=== PATIENT | female | born 1960 | race Caucasian/White ===

== ENCOUNTER → 2017-01-09 | Outpatient (CLI) | payer OTHER ==
[2017-01-09 08:22] LABS: Cholesterol 207 mg/dL (<200); Creatine Kinase 56 U/L (30-135); Glucose 112 mg/dL (74-99); HDL Cholesterol 73 mg/dL (40-60)
== END | disposition home or self-care (01) ==
LOC: LABWHC1 07:50
PROVIDERS: ATTEND Family Medicine
DX: E78.2 Mixed hyperlipidemia (principal); E55.9 Vitamin D deficiency, unspecified
CPT/HCPCS: 36415; 80061; 82306; 82550; 82947

== ENCOUNTER → 2017-11-19 | Outpatient (CLI) | payer OTHER ==
[2017-11-19 11:47] LABS: Basophils % (A) 1 %; Eosinophils # (A) 0.2 k/uL (0-0.7); Eosinophils % (A) 2 %; HCT 45.1 % (34.0-46.0); HGB 14.8 gm/dL (11.4-16.0); Lymphocytes # (A) 2.4 k/uL (1.0-4.8); Lymphocytes % (A) 30 %; MCH 28.9 pg (25.0-35.0); MCHC 32.9 g/dL (31.0-37.0); MCV 87.7 fL (80.0-100.0); Monocytes # (A) 0.5 k/uL (0-1.0); Monocytes % (A) 7 %; Neutrophils # (A) 4.8 k/uL (1.3-7.7); Neutrophils % (A) 59 %; Platelet Count 290 k/uL (150-450); RBC 5.14 m/uL (3.80-5.40); RDW 12.9 % (11.5-15.5); WBC 8.1 k/uL (3.8-10.6)
--- NOTE | 2017-11-19 11:54 | XR ---
EXAMINATION TYPE: XR abdomen 1V DATE OF EXAM: 11/19/2017 COMPARISON: 05/18/2012 HISTORY: Nausea and vomiting TECHNIQUE: One view abdominal series FINDINGS: The osseous structures are intact. The bowel gas pattern is nonspecific. There is a multiple calcifi cations in the pelvis which are nonspecific. Arthropathy of the hips and hypertrophic and degenerativ e change of the spine. Evidence of previous gallbladder surgery seen there are calcifications in the right quadrant Scoliosis and degenerative change of the spine. IMPRESSION: 1. Nonspecific abdominal pelvic calcifications. 2. Nonspecific bowel gas pattern
[2017-11-19 12:22] LABS: ALT 43 U/L (9-52); AST 30 U/L (14-36); Albumin 4.1 g/dL (3.5-5.0); Alkaline Phosphatase 121 U/L (38-126); Anion Gap 10 mmol/L; Blood Urea Nitrogen 12 mg/dL (7-17); Calcium 9.9 mg/dL (8.4-10.2); Carbon Dioxide 28 mmol/L (22-30); Chloride 103 mmol/L (98-107); Glucose 102 mg/dL (74-99); Potassium 4.2 mmol/L (3.5-5.1); Sodium 141 mmol/L (137-145); Total Bilirubin 0.5 mg/dL (0.2-1.3)
[2017-11-19 14:21] LABS: Erythrocyte Sedimentation Rate 19 mm/hr (0-20)
== END | disposition home or self-care (01) ==
LOC: LABWHC1 11:21
PROVIDERS: ATTEND Nurse Practitioner Acute Care
DX: R10.9 Unspecified abdominal pain (principal); K57.92 Diverticulitis of intestine, part unspecified, without perforation or abscess without bleeding
CPT/HCPCS: 36415; 74018; 80053; 85025; 85652

== ENCOUNTER → 2018-03-04 | Day surgery (SDC) | payer OTHER ==
[2018-03-02 14:42] VITALS: BMI 31.6
[~2018-03-04] MED LIST: LACTATED RINGERS 1,000 ML IV SCH; LIDOCAINE 1% 20 ML VIAL (10MG/ML) FOR IV START INTRADERMA ONE; PROPOFOL 10 MG/ML 20 ML VIAL IV ONE
[2018-03-04 11:53] VITALS: TEMP 98.2
--- NOTE | 2018-03-04 13:17 | P.PCN ---
Date of Procedure: 03/04/18 Procedure(s) Performed: BRIEF HISTORY: Patient is a 58-year-old pleasant white female, scheduled for an elective colonoscopy as a part of evaluation of intermittent episodes of left low quadrant abdominal pain. She has multiple episodes of acute sigmoid diverticulitis the last one was about a month ago and was treated with antibiotics. Lately continues to have chronic intermittent left lower quadrant abdominal pain with change in bowel habits. PROCEDURE PERFORMED: Colonoscopy with biopsy and snare polypectomy PREOPERATIVE DIAGNOSIS: Left lower quadrant abdominal pain and change in bowel habits. IV sedation per Anesthesia. PROCEDURE: After informed consent was obtained, the patient, was brought into the endoscopy unit. IV sedation was administered by Anesthesia under continuous monitoring. Digital rectal examination was normal. Initially the Olympus CF- 160 flexible video colonoscope was then inserted in the rectum, gradually advanced into the cecum without any difficulty. Careful examination was performed as the scope was gradually being withdrawn. Ileocecal valve and the appendiceal orifice were visualized and appeared normal. Prep was excellent. In the cecum there was a 5 mm sessile polyp removed by cold biopsy. Mucosa of the cecum, ascending colon, transverse colon appeared normal. The descending colon there was a 7 mm polyp that was removed by snare polypectomy. There are moderate left sided diverticulosis seen. Rest of the, descending colon, sigmoid colon, and rectum appeared normal. Moderate sigmoid diverticula seen. Retroflexion was performed in the rectum and no lesions were seen. The patient tolerated the procedure well. IMPRESSION: 5 mm sessile cecal polyp status post removal by cold biopsy 7 mm descending colon polyp status post polypectomy Moderate sigmoid diverticulosis RECOMMENDATIONS: Findings of this examination were discussed with the patient as well as her family. She was advised to follow with the biopsy results. In the meantime she was advised to be a high-fiber diet and fiber supplements a regular basis. If the biopsy shows adenoma, she can have a repeat colonoscopy in 5 years.
[2018-03-04 13:38] VITALS: BP 130/85; PULSE 67; RESP 16
== END ==
LOC: ORWHC2ENDO 10:50
PROVIDERS: ATTEND Internal Medicine Gastroenterology
DX: D12.4 Benign neoplasm of descending colon (principal); K63.5 Polyp of colon; K57.30 Diverticulosis of large intestine without perforation or abscess without bleeding; E78.5 Hyperlipidemia, unspecified; K21.9 Gastro-esophageal reflux disease without esophagitis; Z88.2 Allergy status to sulfonamides; Z79.899 Other long term (current) drug therapy
CPT/HCPCS: 88305; 45380; 45385; J2704

== ENCOUNTER → 2018-05-03 | Outpatient (CLI) | payer OTHER ==
--- NOTE | 2018-05-06 09:26 | MM ---
Reason for exam: screening (asymptomatic). Last mammogram was performed 6 years and 7 months ago. History: Patient is postmenopausal and had first child at age 30. Family history of breast cancer in 2 paternal aunts. Benign excisional biopsy of the left breast, 2013. Core biopsy of the right breast, April 26, 2008. Took hormonal contraceptives for 5 years beginning at age 24. Physical Findings: A clinical breast exam by your physician is recommended on an annual basis and results should be correlated with mammographic findings. MG Screening Mammo w CAD Bilateral CC and MLO view(s) were taken. Prior study comparison: March 24, 2016, mammogram, performed at [facility]. September 27, 2014, mammogram, performed at [facility]. September 10, 2014, mammogram, performed at [facility]. There are scattered fibroglandular densities. There is chronic nodularity in the right breast. Scar and fat necrosis left upper outer quadrant. Some faint associated calcifications seem to have been present in 2016 as well but were more difficult to see due to differences in technique. 6 month follow up recommended. Possible early fat necrosis. ASSESSMENT: Probably benign, BI-RAD 3 RECOMMENDATION: Follow-up diagnostic mammogram of the left breast in 6 months. MTDD
== END | disposition home or self-care (01) ==
LOC: RADMAMWWP 16:36
PROVIDERS: ATTEND Obstetrics & Gynecology
DX: Z12.31 Encounter for screening mammogram for malignant neoplasm of breast (principal)
CPT/HCPCS: 77067

== ENCOUNTER → 2018-05-19 | Outpatient (CLI) | payer OTHER ==
--- NOTE | 2018-05-19 22:41 | MR ---
EXAMINATION TYPE: MR knee RT wo con DATE OF EXAM: 05/19/2018 COMPARISON: None HISTORY: Pain in right knee TECHNIQUE: Multiplanar, multisequence imaging of the right knee is performed without IV contrast. FINDINGS: MEDIAL MENISCUS: Anterior and posterior horns are intact without tear. LATERAL MENISCUS: Anterior and posterior horns are intact without tear. CRUCIATE LIGAMENTS: The anterior and posterior cruciate ligaments are intact and unremarkable. COLLATERAL LIGAMENTS: The medial collateral ligament and lateral collateral ligament complex are inta ct and unremarkable. EXTENSOR MECHANISM: Visualized quadriceps and patellar tendons are intact. EFFUSION: Minimal joint effusion is present. POPLITEAL CYST: 1.3 x 2.0 x 3.8 cm popliteal cyst is present. TRICOMPARTMENT SPACES: There is narrowing of the patellofemoral joint space. There is thinning of the articular cartilage. Medial lateral compartment joint spaces appear preserved CARTILAGE: There is thinning of the articular cartilage greatest at the patellofemoral joint space. BONE MARROW SIGNAL: No focal abnormal marrow signal is appreciated. OTHER: No additional significant abnormality is appreciated. IMPRESSION: 1. Osteoarthritic degenerative change greatest within the patellofemoral joint space. Mild degenerati ve changes are within the medial lateral compartments. 2. Popliteal cyst.
== END | disposition home or self-care (01) ==
LOC: RADMRIMAIN 15:09
PROVIDERS: ATTEND Orthopaedic Surgery
DX: M17.11 Unilateral primary osteoarthritis, right knee (principal); M71.21 Synovial cyst of popliteal space [Baker], right knee

== ENCOUNTER → 2018-08-04 | Outpatient (CLI) | payer OTHER ==
--- NOTE | 2018-08-04 15:17 | US ---
EXAMINATION TYPE: US carotid duplex BILAT DATE OF EXAM: 08/04/2018 COMPARISON: NONE CLINICAL HISTORY: I65.23 Occlusion of carotid arteries. Numbness EXAM MEASUREMENTS: RIGHT: Peak Systolic Velocity (PSV) cm/sec ----- Right CCA: 87.9 ----- Right ICA: 81.6 ----- Right ECA: 93.0 ICA/CCA ratio: 0.9 RIGHT: End Diastole cm/sec ----- Right CCA: 24.8 ----- Right ICA: 29.8 ----- Right ECA: 17.2 LEFT: Peak Systolic Velocity (PSV) cm/sec ----- Left CCA: 83.3 ----- Left ICA: 75.6 ----- Left ECA: 54.6 ICA/CCA ratio: 0.9 LEFT: End Diastole cm/sec ----- Left CCA: 23.8 ----- Left ICA: 24.9 ----- Left ECA: 10.6 VERTEBRALS (direction of flow): Right Vertebral: Antegrade Left Vertebral: Antegrade Rhythm: Normal Grayscale, color Doppler, spectral Doppler imaging performed of the carotid arteries. Mild plaque brigitte ateral bifurcations. No evidence of increased velocities. No evidence of significant stenosis Waveform analysis does not show significant stenosis of the proximal internal carotid arteries IMPRESSION: No hemodynamic significant stenosis of the proximal internal carotid arteries bilaterall y by Doppler criteria, an indirect measurement of carotid stenosis
--- NOTE | 2018-08-04 15:48 | ECHOF ---
Referral Reason:I65.23 Occlusion and stenosis of bilateral carotid MEASUREMENTS -------- HEIGHT: 157.5 cm WEIGHT: 78.0 kg BP: 115/75 IVSd: 0.9 cm (0.6 - 1.1) LVIDd: 4.0 cm (3.9 - 5.3) LVPWd: 0.9 cm (0.6 - 1.1) IVSs: 1.3 cm LVIDs: 2.5 cm LVPWs: 1.6 cm LA Diam: 3.4 cm (2.7 - 3.8) RVIDd: 2.7 cm (< 3.3) LAESV Index (A-L): 25.23 ml/m Ao Diam: 2.7 cm (2.0 - 3.7) AV Cusp: 1.7 cm (1.5 - 2.6) EPSS: 0.1 cm MV E Kirt: 0.85 m/s MV DecT: 191 ms MV A Kirt: 0.89 m/s MV E/A Ratio: 0.96 RAP: 5.00 mmHg RVSP: 26.02 mmHg MV EF SLOPE: 100.10 mm/s (70 - 150) MV EXCURSION: 1.32 cm (> 18.000) FINDINGS -------- Sinus rhythm. This was a technically good study. The left ventricular size is normal. Left ventricular wall thickness is normal. Overall left vent ricular systolic function is normal with, an EF between 60 - 65 %. The right ventricle is normal in size. Normal LA size by volume 22+/-6 ml/m2. The right atrium is normal in size. The aortic valve is trileaflet and appears structurally normal. Mild mitral regurgitation is present. Mild tricuspid regurgitation present. Right ventricular systolic pressure is normal at < 35 mmHg. Trace/mild (physiologic) pulmonic regurgitation. The aortic root size is normal. Normal inferior vena cava with normal inspiratory collapse consistent with estimated right atrial pre ssure of 5 mmHg. There is no pericardial effusion. CONCLUSIONS -------- 1. Sinus rhythm. 2. This was a technically good study. 3. The left ventricular size is normal. 4. Left ventricular wall thickness is normal. 5. Overall left ventricular systolic function is normal with, an EF between 60 - 65 %. 6. The right ventricle is normal in size. 7. Normal LA size by volume 22+/-6 ml/m2. 8. The right atrium is normal in size. 9. The aortic valve is trileaflet and appears structurally normal. 10. Mild mitral regurgitation is present. 11. Mild tricuspid regurgitation present. 12. Right ventricular systolic pressure is normal at < 35 mmHg. 13. Trace/mild (physiologic) pulmonic regurgitation. 14. The aortic root size is normal. 15. Normal inferior vena cava with normal inspiratory collapse consistent with estimated right atrial pressure of 5 mmHg. 16. There is no pericardial effusion. RN LAB: JUVENTINO Bullock
== END | disposition home or self-care (01) ==
LOC: RADECHMAIN 13:02
PROVIDERS: ATTEND Internal Medicine
DX: I65.23 Occlusion and stenosis of bilateral carotid arteries (principal); I21.9 Acute myocardial infarction, unspecified; I08.8 Other rheumatic multiple valve diseases
CPT/HCPCS: 93306; 93880

== ENCOUNTER → 2018-12-22 | Outpatient (CLI) | payer OTHER ==
--- NOTE | 2018-12-22 15:40 | XR ---
Cervical spine HISTORY: Neck pain, tingling in arms, M 47.892 5 views of the cervical spine Cervical vertebral bodies show preserved height, alignment, bone mineralization is mildly reduced. Th ere is no significant foraminal encroachment on oblique views. There is multilevel facet arthropathy change and spondylosis. Some mild loss of disc height C5-6 and C6-7. Prevertebral soft tissues are no rmal. Loss of lordosis may be due to muscle spasm. IMPRESSION: Degenerative disc disease and facet arthropathy.
== END | disposition home or self-care (01) ==
LOC: RADXRMAIN 14:07
PROVIDERS: ATTEND Internal Medicine
DX: M50.322 Other cervical disc degeneration at C5-C6 level (principal); M46.92 Unspecified inflammatory spondylopathy, cervical region
CPT/HCPCS: 72050

== ENCOUNTER → 2019-04-21 | Outpatient (CLI) | payer BC, OTHER ==
--- NOTE | 2019-04-21 14:16 | MM ---
Reason for exam: additional evaluation requested from prior study. Last mammogram was performed 1 year ago. History: Patient is postmenopausal and had first child at age 30. Family history of breast cancer in 2 paternal aunts. Benign excisional biopsy of the left breast, 2013. Core biopsy of the right breast, April 26, 2008. Took hormonal contraceptives for 5 years beginning at age 24. Physical Findings: Nurse did not find any significant physical abnormalities on exam. MG 3D Diag Mammo W/Cad JORDY Bilateral CC and MLO view(s) were taken. Prior study comparison: May 03, 2018, bilateral MG screening mammo w CAD. March 24, 2016, mammogram, performed at [facility]. The breast tissue is heterogeneously dense. This may lower the sensitivity of mammography. Benign appearing bilateral calcifications. Right biopsy marker noted. No suspicious abnormality. Fat necrosis with stable calcifications at the left excisional site in the upper outer quadrant. No significant new findings when compared with previous films. These results were verbally communicated with the patient and result sheet given to the patient on 04/21/19. ASSESSMENT: Benign, BI-RAD 2 RECOMMENDATION: Routine screening mammogram of both breasts in 1 year.
== END | disposition home or self-care (01) ==
LOC: RADMAMWWP 13:35
PROVIDERS: ATTEND Obstetrics & Gynecology
DX: R92.8 Other abnormal and inconclusive findings on diagnostic imaging of breast (principal)
CPT/HCPCS: 77062; 77066

== ENCOUNTER → 2019-04-29 | Outpatient (CLI) | payer BC ==
[2019-04-29 09:20] LABS: Basophils # (A) 0.1 k/uL (0-0.2); Basophils % (A) 1 %; Eosinophils # (A) 0.1 k/uL (0-0.7); Eosinophils % (A) 2 %; HCT 48.5 % (34.0-46.0); HGB 15.3 gm/dL (11.4-16.0); Lymphocytes # (A) 2.2 k/uL (1.0-4.8); Lymphocytes % (A) 32 %; MCH 28.8 pg (25.0-35.0); MCHC 31.6 g/dL (31.0-37.0); Mean Platelet Volume 7.9; Monocytes # (A) 0.4 k/uL (0-1.0); Monocytes % (A) 6 %; Neutrophils % (A) 58 %; Platelet Count 282 k/uL (150-450); RBC 5.33 m/uL (3.80-5.40); RDW 12.9 % (11.5-15.5); WBC 6.8 k/uL (3.8-10.6)
[2019-04-29 16:44] LABS: Albumin 4.4 g/dL (3.80-4.90); Albumin/Globulin Ratio 2.59 (1.60-3.17); Anion Gap 7.1 mmol/L (4.00-12.00); BUN/Creat Ratio 23.33 Ratio (12.00-20.00); Calcium 9.4 mg/dL (8.7-10.3); Carbon Dioxide 27.9 mmol/L (21.6-31.8); Chol/HDL Ratio 2.62; Globulin 1.7 g/dL (1.6-3.3); LDL Cholesterol,Calculated 102.8 mg/dL (0.0-131.0); Non-African American GFR(CKD) 98.4 (60.0-200.0); Potassium 4.1 mmol/L (3.5-5.5); Total Bilirubin 0.6 mg/dL (0.2-1.2); Total Protein 6.1 g/dL (6.2-8.2); VLDL Calculation 17.2 mg/dL (5.00-40.00)
== END | disposition home or self-care (01) ==
LOC: LABWHC1 08:34
PROVIDERS: ATTEND Internal Medicine
DX: E78.2 Mixed hyperlipidemia (principal); K21.9 Gastro-esophageal reflux disease without esophagitis
CPT/HCPCS: 36415; 80053; 80061; 84443; 85025

== ENCOUNTER → 2019-09-07 | Outpatient (CLI) | payer OTHER ==
--- NOTE | 2019-09-07 15:13 | XR ---
EXAMINATION TYPE: XR femur RT DATE OF EXAM: 09/07/2019 COMPARISON: NONE HISTORY: Pain TECHNIQUE: 4 views are submitted FINDINGS: Hypertrophic change involving the greater trochanter noted and there is moderate to severe concentric narrowing of the hip joint with hypertrophic spurring along the lateral margin the acetabu lum. Vascular calcifications are seen in pelvis. Larger calcification could be on the basis of a uter ine fibroid. There is some cortical thickening involving the proximal femur. No acute fracture. Arthropathy of the knee joint. Moderate-sized suprapatellar joint effusion with hypertrophic spurring of the patella. IMPRESSION: 1. No acute fracture. However, there is a moderate-sized suprapatellar bursal fluid collection which can be associated with internal derangement of the knee. 2. Severe arthropathy of the hips correlate for femoral acetabular impingement.
--- NOTE | 2019-09-07 15:15 | XR ---
EXAMINATION TYPE: XR knee complete RT DATE OF EXAM: 09/07/2019 COMPARISON: NONE HISTORY: Pain TECHNIQUE: Three views are submitted. FINDINGS: Hypertrophic arthropathy of the patellofemoral joint with a moderate-sized suprapatellar joint effusi on. No acute fracture. No dislocation. Narrowing the medial compartment the knee joint with hypertrop hic spurring. IMPRESSION: 1. No acute fracture or dislocation. 2. Hypertrophic arthropathy. Moderate-sized suprapatellar bursal fluid collection.
== END | disposition home or self-care (01) ==
LOC: RADXRMAIN 14:49
PROVIDERS: ATTEND Emergency Medicine
DX: M17.11 Unilateral primary osteoarthritis, right knee (principal)

== ENCOUNTER → 2019-11-08 | Outpatient (CLI) | payer BC ==
[2019-11-08 11:13] LABS: Basophils # (A) 0.1 k/uL (0-0.2); Basophils % (A) 1 %; Eosinophils # (A) 0.1 k/uL (0-0.7); Eosinophils % (A) 2 %; HCT 47.4 % (34.0-46.0); HGB 15.3 gm/dL (11.4-16.0); Lymphocytes # (A) 2.6 k/uL (1.0-4.8); Lymphocytes % (A) 33 %; MCH 29.2 pg (25.0-35.0); MCHC 32.3 g/dL (31.0-37.0); MCV 90.6 fL (80.0-100.0); Monocytes # (A) 0.5 k/uL (0-1.0); Monocytes % (A) 6 %; Neutrophils # (A) 4.4 k/uL (1.3-7.7); Neutrophils % (A) 56 %; Platelet Count 244 k/uL (150-450); RBC 5.23 m/uL (3.80-5.40); RDW 12.8 % (11.5-15.5); WBC 7.8 k/uL (3.8-10.6)
[2019-11-08 17:15] LABS: Albumin 4.5 g/dL (3.80-4.90); Albumin/Globulin Ratio 2.14 (1.60-3.17); Anion Gap 10.1 mmol/L (4.00-12.00); BUN/Creat Ratio 28.33 Ratio (12.00-20.00); Calcium 9.7 mg/dL (8.7-10.3); Carbon Dioxide 25.9 mmol/L (21.6-31.8); Chol/HDL Ratio 2.59; Globulin 2.1 g/dL (1.6-3.3); LDL Cholesterol,Calculated 96.6 mg/dL (0.0-131.0); Non-African American GFR(CKD) 98.4 (60.0-200.0); Potassium 4.4 mmol/L (3.5-5.5); Total Bilirubin 0.6 mg/dL (0.2-1.2); Total Protein 6.6 g/dL (6.2-8.2); VLDL Calculation 19.4 mg/dL (5.00-40.00)
== END | disposition home or self-care (01) ==
LOC: LABWHC1 09:42
PROVIDERS: ATTEND Internal Medicine
DX: E78.2 Mixed hyperlipidemia (principal); F41.9 Anxiety disorder, unspecified
CPT/HCPCS: 36415; 80053; 80061; 84443; 85025

== ENCOUNTER → 2020-10-14 | Outpatient (CLI) | payer OTHER ==
--- NOTE | 2020-10-16 08:28 | MM ---
Reason for exam: screening (asymptomatic). Last mammogram was performed 1 year and 6 months ago. History: Patient is postmenopausal and had first child at age 30. Family history of breast cancer in 2 paternal aunts. Benign excisional biopsy of the left breast, 2013. Core biopsy of the right breast, April 26, 2008. Took hormonal contraceptives for 5 years beginning at age 24. Physical Findings: A clinical breast exam by your physician is recommended on an annual basis and results should be correlated with mammographic findings. MG 3D Screening Mammo W/Cad Bilateral CC and MLO view(s) were taken. Prior study comparison: April 21, 2019, bilateral MG 3d diag mammo w/cad JORDY. May 03, 2018, bilateral MG screening mammo w CAD. No significant changes when compared with prior studies. ASSESSMENT: Benign, BI-RAD 2 RECOMMENDATION: Routine screening mammogram of both breasts in 1 year.
== END | disposition home or self-care (01) ==
LOC: RADMAMWWP 16:03
PROVIDERS: ATTEND Obstetrics & Gynecology
DX: Z12.31 Encounter for screening mammogram for malignant neoplasm of breast (principal); Z78.0 Asymptomatic menopausal state; Z80.3 Family history of malignant neoplasm of breast; Z79.3 Long term (current) use of hormonal contraceptives
CPT/HCPCS: 77063; 77067

== ENCOUNTER → 2021-05-22 | Outpatient (CLI) | payer OTHER ==
--- NOTE | 2021-05-23 07:19 | US ---
EXAMINATION TYPE: US carotid duplex BILAT DATE OF EXAM: 05/22/2021 COMPARISON: NONE CLINICAL HISTORY: I65.23 occlusion and stenosis carotid arteries. Stenosis EXAM MEASUREMENTS: RIGHT: Peak Systolic Velocity (PSV) cm/sec ----- Right CCA: 72.1 ----- Right ICA: 88.1 ----- Right ECA: 152.9 ICA/CCA ratio: 1.2 RIGHT: End Diastole cm/sec ----- Right CCA: 21.2 ----- Right ICA: 18.3 ----- Right ECA: 22.9 LEFT: Peak Systolic Velocity (PSV) cm/sec ----- Left CCA: 97.7 ----- Left ICA: 85.2 ----- Left ECA: 92.7 ICA/CCA ratio: 0.9 LEFT: End Diastole cm/sec ----- Left CCA: 28.8 ----- Left ICA: 28.0 ----- Left ECA: 17.6 VERTEBRALS (direction of flow): Right Vertebral: Antegrade Left Vertebral: Antegrade Rhythm: Normal No significant velocity elevations IMPRESSION: No evidence for hemodynamically significant stenosis. Criteria for Assigning % of Stenosis / Diameter reduction (Estimation based on the indirect measurements of the internal carotid artery velocities (ICA PSV). 1. Normal (no stenosis)=ICA PSV < 125 cm/s: ratio < 2.0: ICA EDV<40 cm/s. 2. Less than 50% stenosis=ICA PSV < 125 cm/s: ratio < 2.0: ICA EDV<40 cm/s. 3. 50 to 69% stenosis=ICA PSV of 125 to 230 cm/s: ration 2.0 ? 4.0: ICA EDV 40-100 cm/s. 4. Greater than 70% stenosis to near occlusion= ICA PSV > 230 cm/s: ratio > 4.0: ICA EDV > 100 cm/s. 5. Near occlusion= ICA PSV velocities may be low or undetectable: variable ratio and ICA EDV. 6. Total occlusion=unable to detect flow.
== END | disposition home or self-care (01) ==
LOC: RADUSWWP 15:15
PROVIDERS: ATTEND Internal Medicine
DX: I65.23 Occlusion and stenosis of bilateral carotid arteries (principal)
CPT/HCPCS: 93880

== ENCOUNTER → 2021-11-11 | Outpatient (CLI) | payer OTHER ==
--- NOTE | 2021-11-11 12:24 | XR ---
EXAMINATION TYPE: XR knee limited bilateral DATE OF EXAM: 11/11/2021 COMPARISON: NONE HISTORY: Pain TECHNIQUE: Three views are submitted. FINDINGS: Narrowing of the medial compartment of knee joint with hypertrophic spurring. Diffuse osteopenia. Mar ked narrowing patellofemoral joint with hypertrophic spurring.. Osseous structures are intact. No a cute fracture seen. IMPRESSION: 1. Bilateral osteoarthritis favored or depositional arthropathy. Most marked findings are seen involv ing the bilateral femoral joint.
== END | disposition home or self-care (01) ==
LOC: RADXRMAIN 12:03
PROVIDERS: ATTEND Internal Medicine
DX: M17.0 Bilateral primary osteoarthritis of knee (principal)

== ENCOUNTER → 2021-12-29 | Outpatient (CLI) | payer OTHER ==
--- NOTE | 2021-12-30 08:43 | XR ---
Lumbar spine with flexion and extension HISTORY: Low back pain 7 views of the lumbar spine Levoscoliosis is centered at L2, there is a rotatory component. There is multilevel spondylosis. Lumb ar vertebral bodies show preserved height. There is no evident spondylolysis or spondylolisthesis. No listhesis noted on flexion and extension views. Sclerosis is present in the posterior elements consi stent with facet arthropathy. Loss of disc height is present at intervertebral levels consistent with disc desiccation and degenerative disc disease. Bone mineralization is reduced. Rounded calcified de nsities in the right upper quadrant are indeterminate. Surgical clips are present in the right upper quadrant. IMPRESSION: Degenerative disc disease, facet arthropathy, scoliosis, osteopenia. Additional nonspecif ic findings above
== END | disposition home or self-care (01) ==
LOC: RADXRMAIN 16:09
PROVIDERS: ATTEND Internal Medicine
DX: M51.26 Other intervertebral disc displacement, lumbar region (principal); M47.816 Spondylosis without myelopathy or radiculopathy, lumbar region; M41.86 Other forms of scoliosis, lumbar region
CPT/HCPCS: 72114

== ENCOUNTER → 2022-02-25 | Outpatient (CLI) | payer OTHER ==
--- NOTE | 2022-02-25 11:44 | CT ---
EXAMINATION TYPE: CT urogram wo/w con CT DLP: 3165.40 mGycm, Automated exposure control for dose reduction was used. DATE OF EXAM: 02/25/2022 11:08 AM COMPARISON: CT abdomen pelvis most recent from 05/18/20192012 CLINICAL INDICATION:Female, 61 years old with history of R10.9 R flank pain; TECHNIQUE: Urogram with imaging of the abdomen and pelvis. Coronal and sagittal reformats were performed. 2D and 3D reconstructions are performed to assist visualization of the urinary tract on a separate workstat ion. Contrast used:100 ml mL of Isovue 370 without and with IV Contrast, Oral contrast used: None. FINDINGS: GENITOURINARY: RIGHT KIDNEY AND URETER: No calculi. No hydronephrosis or hydroureter. No renal mass. No urothelial l esions: no filling defect, dilation, stricture or wall thickening. Simple appearing renal cysts. LEFT KIDNEY AND URETER: No calculi. No hydronephrosis or hydroureter. No renal mass. No urothelial le sions: no filling defect, dilation, stricture or wall thickening. Simple appearing renal cysts. URINARY BLADDER: Moderately well distended. Limited evaluation secondary to partial filling of the bl adder with excreted IV contrast. No calculi or obvious mass. REPRODUCTIVE: Unremarkable. ABDOMEN LIVER: Unremarkable. GALLBLADDER AND BILE DUCTS: The gallbladder surgically absent there appears to be 2 peripherally calc ified stones in the gallbladder fossa. Additional peripherally calcified stone is felt to be within t he pelvis. Findings are unchanged from 2013. PANCREAS: Unremarkable. SPLEEN: Unremarkable. ADRENAL GLANDS: Unremarkable. STOMACH AND BOWEL: No evidence of bowel obstruction. Scattered clonic diverticula present. The append ix is normal. PERITONEUM: No evidence of pneumoperitoneum, free fluid, or adenopathy. VASCULATURE: No aortic aneurysm. Atherosclerosis of the arterial vasculature. MUSCULOSKELETAL: No acute osseous abnormalities. Multilevel disc degeneration changes throughout the spine. SOFT TISSUE/ABDOMINAL WALL: Fat-containing umbilical hernia. LOWER CHEST: No significant findings. IMPRESSION: No evidence of urolithiasis or renal/urothelial neoplasm. No acute abdominal process to explain the patient's right flank pain. Clonic diverticulosis.
== END | disposition home or self-care (01) ==
LOC: RADCTMAIN 09:02
PROVIDERS: ATTEND Internal Medicine
DX: K57.30 Diverticulosis of large intestine without perforation or abscess without bleeding (principal); R10.9 Unspecified abdominal pain
CPT/HCPCS: 74178; 74400; Q9967

== ENCOUNTER → 2022-03-03 | Outpatient (CLI) | payer OTHER ==
--- NOTE | 2022-03-03 18:15 | BD ---
EXAMINATION TYPE: Axial Bone Density DATE OF EXAM: 03/03/2022 COMPARISON: BASELINE CLINICAL HISTORY: 62 years old Female. ICD-10 CODE: M81.0 AGE RELATED OSTEOPOROSIS Height: 61 Weight: 181 FRAX RISK QUESTIONS: Family History (Parent hip fracture): NO History of Fracture in Adulthood: YES Secondary Osteoporosis: NO Rheumatoid Arthritis: NO RISK FACTORS HISTORY OF: History of Wrist Fracture: YES RT When: 2014 Family History of Osteoporosis: NO Active: YES Diet low in dairy products/other sources of calcium: NO Postmenopausal woman: YES Lost more than 2 inches in height since high school: NO Frequent falls: YES PER PATIENT MEDICATIONS: Additional Medications: YES VIT D , ANXIETY , FISH OIL EXAM MEASUREMENTS: Bone mineral densitometry was performed using the [employer]. Bone mineral density as measured about the Lumbar spine is: ----- L1-L4(G/cm2): 1.126 T Score Values are as follows: ----- L1: -0.8 ----- L2: -0.5 ----- L3: -1.2 ----- L4: 0.4 ----- L1-L4: -0.4 Bone mineral density BASELINE Bone mineral density about the R hip (g/cm2): 0.997 Bone mineral density about the L hip (g/cm2): 1.026 T Score values are as follows: -----R Neck: -1.5 -----L Neck: -1.3 -----R Total: -0.1 -----L Total: 0.1 Bone mineral density BASELINE FRAX%s: The graph provided illustrates a 6.5% chance for a major osteoporotic fx and a 1.1% chance fo r the hips probability for fx in 10 years time. IMPRESSION: Osteopenia (T Score between -2.5 and -1). There is slightly increased risk of fracture and the patient may be considered for treatment. Re-Screen 2-5 years. NOTE: T-SCORE=SD OF THE YOUNG ADULT MEAN.
== END | disposition home or self-care (01) ==
LOC: RADBDWWP 13:08
PROVIDERS: ATTEND Internal Medicine
DX: M85.89 Other specified disorders of bone density and structure, multiple sites (principal)
CPT/HCPCS: 77080

== ENCOUNTER → 2022-10-08 | Outpatient (CLI) | payer OTHER ==
--- NOTE | 2022-10-08 09:26 | MM ---
Reason for Exam: Follow-up at short interval from prior study. Last screening mammogram was performed 9 month(s) ago. Patient History: Menarche at age 11. First Full-Term at age 30. Late child-bearing (after 30). Postmenopausal. Hormonal Contraceptives for 5 years from age 24 until age 29. 2014, Benign Excisional Biopsy on the left side. 04/26/2008, Core Biopsy on the Right side. Paternal aunt had breast cancer, age 60. Paternal aunt had breast cancer, age 65. Risk Values: Marcelle 5 year model risk: 3.3%. NCI Lifetime model risk: 13.0%. Prior Study Comparison: 05/03/2018 Bilateral Screening Mammogram, [facility]. 04/21/2019 Bilateral Diagnostic Mammogram, [facility]. 10/14/2020 Bilateral Screening Mammogram, [facility]. 01/23/2022 Bilateral Screening Mammogram, [facility]. Tissue Density: Left: The breast tissue is heterogeneously dense. This may lower the sensitivity of mammography. Findings: Analyzed By CAD. No new suspicious mass within the left breast. Benign-appearing calcifications are redemonstrated. Fat necrosis with stable calcifications at the left excisional site in the upper-outer quadrant. No new suspicious calcifications. Overall Assessment: Benign, BI-RAD 2 Management: Screening Mammogram of both breasts in 6 months. A clinical breast exam by your physician is recommended on an annual basis and results should be correlated with mammographic findings. This exam should not preclude additional follow-up of suspicious palpable abnormalities. Results were given to the patient verbally at the time of exam. Note on Marcelle scores and lifetime risk: 1. A Marcelle score greater than 3% is considered moderate risk. If this is the case, consider specialist referral to assess eligibility for a risk reducing agent. If overall lifetime risk for the development of breast cancer is 20% or higher, the patient may qualify for future screening with alternating mammogram and breast MRI. Electronically signed and approved by: Pernell Antonio D.O.
== END | disposition home or self-care (01) ==
LOC: RADMAMWWP 07:57
PROVIDERS: ATTEND Obstetrics & Gynecology
DX: R92.8 Other abnormal and inconclusive findings on diagnostic imaging of breast (principal); Z78.0 Asymptomatic menopausal state; Z80.3 Family history of malignant neoplasm of breast
CPT/HCPCS: 77061; 77065

== ENCOUNTER → 2023-04-02 | Day surgery (SDC) | payer OTHER ==
[2023-03-31 14:44] VITALS: BMI 33.5
[~2023-04-02] MED LIST changes: +LACTATED RINGERS 1,000 ML IV ONE; -LIDOCAINE 1% 20 ML VIAL (10MG/ML) FOR IV START INTRADERMA ONE
[2023-04-02 13:35] VITALS: TEMP 97.8
--- NOTE | 2023-04-02 14:34 | P.PCN ---
Date of Procedure: 04/02/23 Procedure(s) Performed: BRIEF HISTORY: Patient is a 63-year-old pleasant white female scheduled for an elective colonoscopy as a part of evaluation of prior history of colon polyps. Last colonoscopy was 5 years ago. PROCEDURE PERFORMED: Colonoscopy with snare polypectomy. PREOPERATIVE DIAGNOSIS: History of colon polyps. IV sedation per Anesthesia. PROCEDURE: After informed consent was obtained, the patient, was brought into the endoscopy unit. IV sedation was administered by Anesthesia under continuous monitoring. Digital rectal examination was normal. Initially the Olympus CF-160 flexible video colonoscope was then inserted in the rectum, gradually advanced into the cecum without any difficulty. Careful examination was performed as the scope was gradually being withdrawn. Ileocecal valve and the appendiceal orifice were visualized and appeared normal. Prep was fair.. Mucosa of the cecum, appeared normal. In the ascending colon there was a 5 limited polyp that was removed by cold snare polypectomy. Rest of the ascending colon, transverse colon, descending colon, sigmoid colon, and rectum appeared normal. Scattered sigmoid diverticulosis. Retroflexion was performed in the rectum and no lesions were seen. The patient tolerated the procedure well. IMPRESSION: 5 mm ascending colon polyp status post cold snare polypectomy Scattered left sided diverticulosis RECOMMENDATIONS: Findings of this examination were discussed with the patient as well as a family. She was advised to follow with the biopsy results and have a repeat colonoscopy in 5 years.
[2023-04-02 15:11] VITALS: BP 114/77; PULSE 71; RESP 14
== END ==
LOC: ORWHC2ENDO 12:20
PROVIDERS: ATTEND Internal Medicine Gastroenterology
DX: Z12.11 Encounter for screening for malignant neoplasm of colon (principal); K63.5 Polyp of colon; K57.30 Diverticulosis of large intestine without perforation or abscess without bleeding; E78.5 Hyperlipidemia, unspecified; G47.33 Obstructive sleep apnea (adult) (pediatric); F41.9 Anxiety disorder, unspecified; K21.9 Gastro-esophageal reflux disease without esophagitis; K57.90 Diverticulosis of intestine, part unspecified, without perforation or abscess without bleeding; Z79.1 Long term (current) use of non-steroidal anti-inflammatories (NSAID); Z79.899 Other long term (current) drug therapy; Z90.49 Acquired absence of other specified parts of digestive tract; Z98.890 Other specified postprocedural states; Z88.2 Allergy status to sulfonamides; Z86.010 Personal history of colon polyps
CPT/HCPCS: 88305; 45385; J2704

== ENCOUNTER → 2023-04-23 | Outpatient (CLI) | payer OTHER ==
--- NOTE | 2023-04-26 20:28 | MM ---
Reason for Exam: Screening (asymptomatic). Last mammogram was performed 1 year(s) and 3 month(s) ago. Patient History: Menarche at age 11. First Full-Term at age 30. Late child-bearing (after 30). Postmenopausal. Hormonal Contraceptives for 5 years from age 24 until age 29. 2014, Benign Excisional Biopsy on the left side. 04/26/2008, Core Biopsy on the Right side. Paternal aunt had breast cancer, age 60. Paternal aunt had breast cancer, age 65. Risk Values: Marcelle 5 year model risk: 3.4%. NCI Lifetime model risk: 12.6%. Prior Study Comparison: 10/14/2020 Bilateral Screening Mammogram, [facility]. 01/23/2022 Bilateral Screening Mammogram, [facility]. 10/08/2022 Left MG 3D diag mammo w/cad LT, [facility]. Tissue Density: The breast tissue is heterogeneously dense. This may lower the sensitivity of mammography. Findings: Analyzed By CAD. Microclip right breast from prior biopsy. Unchanged asymmetric density left breast with associated calcifications. New spiculated mass 2:00 right breast for which further evaluation is recommended. Increased central 12:00 grouped calcifications right breast at a middle depth for which further magnification views are recommended. Overall Assessment: Incomplete: need additional imaging evaluation, BI-RAD 0 Management: Special View Mammogram of the right breast. Diagnostic Breast Ultrasound of the right breast. Additional views for the 12:00 microcalcifications including mag CC, lateral, and 3-D lateral views. Further spot compression views for the 2:00 spiculated mass. This should be followed with whole right breast ultrasound. [facility] will attempt to contact patient to return for supplemental views and ultrasound if indicated. Electronically signed and approved by: Maikel Dodson M.D. Radiologist
== END | disposition home or self-care (01) ==
LOC: RADMAMWWP 08:12
PROVIDERS: ATTEND Obstetrics & Gynecology
DX: Z12.31 Encounter for screening mammogram for malignant neoplasm of breast (principal); Z80.3 Family history of malignant neoplasm of breast; Z78.0 Asymptomatic menopausal state
CPT/HCPCS: 77063; 77067

== ENCOUNTER → 2023-05-05 | Outpatient (CLI) | payer OTHER ==
--- NOTE | 2023-05-05 10:46 | MM ---
Reason for Exam: Additional evaluation requested from prior study. Last screening mammogram was performed less than 1 month ago. Patient History: Menarche at age 11. First Full-Term at age 30. Late child-bearing (after 30). Postmenopausal. Hormonal Contraceptives for 5 years from age 24 until age 29. 2014, Benign Excisional Biopsy on the left side. 04/26/2008, Core Biopsy on the Right side. Paternal aunt had breast cancer, age 60. Paternal aunt had breast cancer, age 65. Risk Values: Marcelle 5 year model risk: 3.4%. NCI Lifetime model risk: 12.6%. Tissue Density: Right: The breast tissue is heterogeneously dense. This may lower the sensitivity of mammography. Findings: Analyzed By CAD. Indeterminate microcalcifications noted at the right 12:00 position. Stereotactic core biopsy is recommended. Spiculated mass 7.7 cm from the nipple at the approximate 2:00 position requires ultrasound evaluation. Overall Assessment: Incomplete: need additional imaging evaluation, BI-RAD 0 Management: Diagnostic Breast Ultrasound of the right breast. . Results were given to the patient verbally at the time of exam. Patient should continue monthly self-breast exams. A clinical breast exam by your physician is recommended on an annual basis. This exam should not preclude additional follow-up of suspicious palpable abnormalities. Note on Marcelle scores and lifetime risk: 1. A Marcelle score greater than 3% is considered moderate risk. If this is the case, consider specialist referral to assess eligibility for a risk reducing agent. 2. If overall lifetime risk for the development of breast cancer is 20% or higher, the patient may qualify for future screening with alternating mammogram and breast MRI. Electronically signed and approved by: Eddy Richardson M.D. Radiologis
--- NOTE | 2023-05-05 12:08 | USB ---
Reason for Exam: Additional evaluation requested from abnormal screening. Patient History: Menarche at age 11. First Full-Term at age 30. Late child-bearing (after 30). Postmenopausal. Hormonal Contraceptives for 5 years from age 24 until age 29. 2013, Benign Excisional Biopsy on the left side. 04/26/2008, Core Biopsy on the Right side. Paternal aunt had breast cancer, age 60. Paternal aunt had breast cancer, age 65. Risk Values: Marcelle 5 year model risk: 3.4%. NCI Lifetime model risk: 12.6%. Technique: Method: Targeted. Prior Study Comparison: 01/23/2022 Bilateral Screening Mammogram, [facility]. 10/08/2022 Left MG 3D diag mammo w/cad , [facility]. 04/23/2023 Bilateral MG 3D screening mammo w/cad, [facility]. Findings: The upper section of the breast of the right breast, the axilla of the right breast and the retroareolar of the right breast were scanned. Hypoechoic mass noted at the right 2:00 position 8 cm from nipple measuring 1.2 x 1.1 cm suspicious for malignancy until proven otherwise. Ultrasound-guided core biopsy of this lesion is recommended. Stereotactic core biopsy of microcalcifications also advised. Overall Assessment: Highly suggestive of malignancy, BI-RAD 5 Management: Ultrasound Core Biopsy of the right breast. A clinical breast exam by your physician is recommended on an annual basis and results should be correlated with mammographic findings. This exam should not preclude additional follow-up of suspicious palpable abnormalities. Results were given to the patient verbally at the time of exam. Electronically signed and approved by: Eddy Richardson M.D. Radiologis
== END | disposition home or self-care (01) ==
LOC: RADMAMWWP 10:17
PROVIDERS: ATTEND Obstetrics & Gynecology
DX: R92.331 Mammographic heterogeneous density, right breast (principal); Z80.3 Family history of malignant neoplasm of breast; Z78.0 Asymptomatic menopausal state
CPT/HCPCS: 77061; 77065

== ENCOUNTER → 2023-05-28 | Day surgery (SDC) | payer OTHER ==
--- NOTE | 2023-06-03 13:50 | USB ---
Risk Values: Marcelle 5 year model risk: 3.4%. NCI Lifetime model risk: 12.6%. Prior Study Comparison: 10/08/2022 Left MG 3D diag mammo w/cad , [facility]. 04/23/2023 Bilateral MG 3D screening mammo w/cad, [facility]. 05/05/2023 Right MG 3D work up w/cad RT, [facility]. Pathology Description: Location: 2 o'clock. Marker Left Behind. Needle Type: Mammotome Cores: 8 Gauge: 13 The procedure of ultrasound guided core biopsy was explained to the patient. Benefits, alternatives, and risks were discussed. An informed consent was then obtained. The patient was placed in supine positioning for imaging and for the procedure. The overlying skin was prepped and draped in usual sterile fashion. Lidocaine was used as anesthetic into the skin followed by lidocaine/epinephrine into the subcutaneous tissue up to area of concern in the 2:00 right breast. Under ultrasound guidance, a 13-gauge vacuum-assisted mammotome Elite biopsy gun was used to obtain 8 core samples. Following this, a wing clip was left in lesion. The patient tolerated the procedure well without any immediate complication. The patient was kept in the radiology department for short stay after the procedure and then discharged home in stable condition. Postprocedure mammogram: The patient was transferred to mammography for physician ordered post procedure mammogram for clip placement verification. Postprocedure mammogram shows satisfactory positioning of both centrally located stereotactic clip for the earlier biopsy of microcalcifications performed today. The wing clip is at the 2:00 position along the lateral margin of the spiculated mass. IMPRESSION: Successful, uncomplicated ultrasound guided core biopsy of a BI-RADS 5 mass within the 2:00 right breast, full pathology results to follow. Pathology also pending for the stereotactic core needle biopsy for calcifications centrally in the breast performed earlier today. Pathology Results: Result: Malignant, Invasive ductal carcinoma. RIGHT BREAST, TWO O'CLOCK, ULTRASOUND GUIDED CORE BIOPSY: Invasive ductal carcinoma, Grade 2, with focal DCIS (see Surgical Pathology Cancer Case Summary and Comment). Overall Assessment: Malignant Management: Surgical Consultation of the right breast. Electronically signed and approved by: Maikel Dodson M.D. Radiologist
== END ==
LOC: RADUSWWP 07:52
PROVIDERS: ATTEND Surgery
DX: C50.211 Malignant neoplasm of upper-inner quadrant of right female breast (principal)
CPT/HCPCS: 88305; 88342; 88341; 19083; A4648

== ENCOUNTER → 2023-05-28 | Day surgery (SDC) | payer OTHER ==
[2023-05-28 07:44] VITALS: RESP 16
--- NOTE | 2023-05-28 08:03 | P.GSHP ---
History of Present Illness H&P Date: 05/28/23 Chief Complaint: Abnormal right breast mammogram Yasmine is a 63-year-old white female seen in consultation for Dr. Jin regarding an abnormal right breast mammogram. She underwent a bilateral mammogram on 04-23-23 which led to a right breast diagnostic mammogram and u ltrasound of the right breast. Two areas of concern were noted in the right breast. Microcalcifications of concern at 12:00 and a spiculated lesion at 2:00. Stero biopsy of hte microcalcification was recommended and ultrasound core biopsy of the mass. She does not feel anything of concern in either breast. She usually gets mammograms every 6 months secondary to dense breast. She has had several biopsies in the past always benign. She has not had any open surgery in her breast. No bloody nipple the patient is not complaining of any nipple discharge, she has not had any recent trauma or infection in the breast. Caffeine: 2 cups/day nicotine: none chocolate: occasional BCP: used them for about 4 years in the remote past hormones: intravaginal estrogen weekly uses a suppository Family history: father: lung cancer smoked 4 PPD paternal aunts two: breast cancer paternal grandmother: ? type of cancer Hormonal History: menarche: 11 breast fed: yes, age at first : 30 menopause: 50 hormones: using them for 3 years vaginal estrogen Surgical history: The calcaneus bilateral calcaneus trimmed Cholecystectomy Left rotator cuff Medical history: high cholesterol Social History: nicotine: none alcohol: none drugs: none - Constitutional Constitutional: Denies chills, Denies fever - EENT Eyes: denies blurred vision, denies pain Ears: deny: decreased hearing, tinnitus Ears, nose, mouth and throat: Denies headache, Denies sore throat - Cardiovascular Cardiovascular: Denies chest pain, Denies shortness of breath - Respiratory Respiratory: Denies cough, Denies 7 - Gastrointestinal Comment: diverticular disease Gastrointestinal: Denies abdominal pain, Denies diarrhea, Denies nausea, Denies vomiting - Genitourinary (Female) Genitourinary: Denies dysuria, Denies hematuria - Menstruation Menstruation: Reports postmenopausal - Musculoskeletal Comment: arthritis Musculoskeletal: Reports myalgias - Integumentary Integumentary: Denies pruritus, Denies rash - Neurological Neurological: Denies numbness, Denies weakness - Psychiatric Psychiatric: Reports anxiety, Reports depression - Endocrine Endocrine: Denies fatigue, Denies weight change - Hematologic/Lymphatic Comment: none - Allergic/Immunologic Allergic/Immunologic: Reports seasonal allergies Past Medical History Past Medical History: Deep Vein Thrombosis (DVT), GERD/Reflux, Hyperlipidemia, Osteoarthritis (OA), Sleep Apnea/CPAP/BIPAP Additional Past Medical History / Comment(s): Diverticulitis. Hx DVT at age 6 after broken ankle. CPAP use. History of Any Multi-Drug Resistant Organisms: None Reported Past Surgical History: Breast Surgery, Cholecystectomy, Orthopedic Surgery Additional Past Surgical History / Comment(s): Bilateral foot surgery, left rotator cuff repair, cataract surgery with lens implants. Benign excisional biopsy left breast. Benign core biopsy right breast. Past Anesthesia/Blood Transfusion Reactions: Motion Sickness, Postoperative Nausea & Vomiting (PONV) Additional Past Anesthesia/Blood Transfusion Reaction / Comment(s): PONV - MOM. Minimal motion sickness. Past Psychological History: Anxiety Smoking Status: Never smoker Past Alcohol Use History: Rare Past Drug Use History: None Reported - Past Family History Father Family Medical History: Cancer Medications and Allergies Home Medications Medication Instructions Recorded Confirmed Type Cholecalciferol [Vitamin D3 (25 25 mcg PO DAILY 03/31/23 05/28/23 History Mcg = 1000 Iu)] Famotidine [Pepcid] 10 mg PO PC-SUPPER PRN 03/31/23 05/28/23 History Loratadine [Claritin] 10 mg PO DAILY PRN 03/31/23 05/28/23 History Rosuvastatin Calcium 10 mg PO DAILY 03/31/23 05/28/23 History Venlafaxine HCl ER [Effexor Xr] 37.5 mg PO QAM 03/31/23 05/28/23 History Dicyclomine [Bentyl] 10 mg PO QID PRN 05/07/23 05/28/23 History Allergies Allergy/AdvReac Type Severity Reaction Status Date / Time grass pollen Allergy Itchy eyes Verified 05/28/23 07:19 Sulfa (Sulfonamide Allergy Unknown Verified 05/28/23 07:19 Antibiotics) Childhood Surgical - Exam Vital Signs Temp Pulse Resp BP 98.3 F 77 16 111/74 05/28/23 07:20 05/28/23 07:20 05/28/23 07:20 05/28/23 07:20 - General no distress - Eyes normal ocular movement - Neck trachea midline - Respiratory normal respiratory effort, clear to auscultation - Cardiovascular Heart Sounds: normal: S1, S2 - Abdomen Abdomen: soft, non tender, no guarding, no rigid, no rebound - Integumentary normal turgor - Neurologic no disoriented, no combative - Musculoskeletal normal gait - Psychiatric oriented to time, oriented to person, oriented to place, speech is normal, memory intact Breast Exam: BRA: 40G Inspection: Bilateral grade 2/3 ptosis Patient: Right breast: Multi positional exam fibrocystic changes, no dominant masses or nodules of concern Right axilla: No adenopathy of concern Left breast: Multi positional exam fibrocystic changes no dominant masses or nodules of concern Left axilla: No adenopathy of concern Results Exam and ultrasound personally reviewed with Dr. Dodson Right breast: Microcalcifications at 12:00 Spiculated lesion at 2:00 Assessment and Plan Assessment: Impression: Radiographic abnormality right breast Family history of cancer Plan: Right breast stereotactic core biopsy 12:00 Right breast ultrasound-guided core biopsy 2:00 Risk and benefits of the procedure discussed with the patient. Risk include but are not limited to bleeding, infection, reaction to the anesthetic. If there were discordance of the biopsy results then further tissue acquisition may be necessary. The patient understands and wishes to proceed. CC: Dr. Jin
[2023-05-28 08:51] VITALS: BP 113/80; PULSE 69; TEMP 98.1
--- NOTE | 2023-05-28 11:34 | MM ---
Date of Procedure: 05/28/23 Preoperative Diagnosis: Microcalcifications of concern right breast Postoperative Diagnosis: Same Procedure(s) Performed: Right breast stereotactic core biopsy Anesthesia: local Surgeon: Betty Kline Condition: other (Radiograph of specimen reveals microcalcifications of concern) Disposition: same day Indications for Procedure: Microcalcifications of concern 12 o'clock position mid area right breast Operative Findings: Radiograph of specimen reveals microcalcifications of concern Description of Procedure: The patient is a 63-year-old white female seen in consultation for right breast microcalcifications of concern. The calcifications were noted to be in the 12 o'clock position in the mid area of the breast. The radiographs were personally reviewed with Dr. Dodson from radiology. Additionally in the 2 o'clock position of the breast she is noted to have some nodular area for which ultrasound core biopsy is recommended. The patient was examined and risk and benefits of the procedure were discussed with the patient. The patient wished to proceed with a stereotactic core biopsy. The patient was brought to the stereotactic core biopsy room. She was positioned in the upright chair. A CC from above approach was utilized. A freelance copywriter film was obtained. The microcalcifications of concern were identified. These were targeted. The breast was prepped using Hibiclens. 20 cc of 1% lidocaine were used to anesthetize the area of concern. A 9 gauge vacuum- assisted core rotating biopsy needle was driven to the correct coordinates. A prefire film was obtained. The needle was noted to be in the correct location. The needle was fired. A post fire film was obtained. The needle was noted to be in the correct location. 12 core biopsy specimens were obtained. Radiograph of the specimen revealed that the calcifications of concern had been adequately sampled. A secure violet Top-Hat clip was deployed. The patient will follow-up with Dr. Wong next week. The specimen is sent to pathology. A post procedure radiograph reveals the clip to be in the correct location. Ultrasound-guided core biopsy will be performed of the nodular density in the breast at 2:00. [facility]ITAL[facility]
== END ==
LOC: RADMAMWWP 07:09
PROVIDERS: ATTEND Surgery
DX: D05.11 Intraductal carcinoma in situ of right breast (principal); E78.00 Pure hypercholesterolemia, unspecified; F41.9 Anxiety disorder, unspecified; G47.30 Sleep apnea, unspecified; K21.9 Gastro-esophageal reflux disease without esophagitis; M19.90 Unspecified osteoarthritis, unspecified site; F10.90 Alcohol use, unspecified, uncomplicated; Z86.718 Personal history of other venous thrombosis and embolism; Z88.1 Allergy status to other antibiotic agents; Z88.2 Allergy status to sulfonamides; Z90.49 Acquired absence of other specified parts of digestive tract; Z80.1 Family history of malignant neoplasm of trachea, bronchus and lung; Z79.899 Other long term (current) drug therapy
CPT/HCPCS: 88305; 88342; 88341; 19081; A4648; J2001

== ENCOUNTER → 2023-05-28 | Outpatient (CLI) | payer OTHER ==
--- NOTE | 2023-05-28 09:40 | P.PCN ---
Date of Procedure: 05/28/23 Preoperative Diagnosis: Microcalcifications of concern right breast Postoperative Diagnosis: Same Procedure(s) Performed: Right breast stereotactic core biopsy Anesthesia: local Surgeon: Betty Kline Condition: other (Radiograph of specimen reveals microcalcifications of concern) Disposition: same day Indications for Procedure: Microcalcifications of concern 12 o'clock position mid area right breast Operative Findings: Radiograph of specimen reveals microcalcifications of concern Description of Procedure: The patient is a 63-year-old white female seen in consultation for right breast microcalcifications of concern. The calcifications were noted to be in the 12 o'clock position in the mid area of the breast. The radiographs were personally reviewed with Dr. Dodson from radiology. Additionally in the 2 o'clock position of the breast she is noted to have some nodular area for which ultrasound core biopsy is recommended. The patient was examined and risk and benefits of the procedure were discussed with the patient. The patient wished to proceed with a stereotactic core biopsy. The patient was brought to the stereotactic core biopsy room. She was positioned in the upright chair. A CC from above approach was utilized. A emblem maker film was obtained. The microcalcifications of concern were identified. These were targeted. The breast was prepped using Hibiclens. 20 cc of 1% lidocaine were used to anesthetize the area of concern. A 9 gauge vacuum- assisted core rotating biopsy needle was driven to the correct coordinates. A prefire film was obtained. The needle was noted to be in the correct location. The needle was fired. A post fire film was obtained. The needle was noted to be in the correct location. 12 core biopsy specimens were obtained. Radiograph of the specimen revealed that the calcifications of concern had been adequately sampled. A secure violet Top-Hat clip was deployed. The patient will follow-up with Dr. Wong next week. The specimen is sent to pathology. A post procedure radiograph reveals the clip to be in the correct location. Ultrasound-guided core biopsy will be performed of the nodular density in the breast at 2:00.
== END ==
LOC: WWCWWP 07:46
PROVIDERS: ATTEND Surgery
DX: N63.10 Unspecified lump in the right breast, unspecified quadrant (principal); R92.1 Mammographic calcification found on diagnostic imaging of breast; Z91.09 Other allergy status, other than to drugs and biological substances; Z88.2 Allergy status to sulfonamides

== ENCOUNTER → 2023-06-03 | Outpatient (CLI) | payer OTHER ==
[2023-06-03 11:04] VITALS: BP 148/79; PULSE 97; RESP 17; TEMP 98
--- NOTE | 2023-06-03 11:37 | P.PN ---
Subjective Progress Note Date: 06/03/23 Chief Complaint: Abnormal right breast mammogram Yasmine is a 63-year-old white female seen in consultation for Dr. Jin regarding an abnormal right breast mammogram. She underwent a bilateral mammogram on 04-23-23 which led to a right breast diagnostic mammogram and ultrasound of the right breast. Two areas of concern were noted in the right breast. Microcalcifications of concern at 12:00 and a spiculated lesion at 2:00. Stero biopsy of hte microcalcification was recommended and ultrasound core biopsy of the mass. She does not feel anything of concern in either breast. She usually gets mammograms every 6 months secondary to dense breast. She has had several biopsies in the past always benign. She has not had any open surgery in her breast. No bloody nipple the patient is not complaining of any nipple discharge, she has not had any recent trauma or infection in the breast. 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 type of cancer Hormonal History: menarche: 11 breast fed: yes, age at first : 30 menopause: 50 hormones: using them for 3 years vaginal estrogen Surgical history: The calcaneus bilateral calcaneus trimmed Cholecystectomy Left rotator cuff Medical history: high cholesterol Social History: nicotine: none alcohol: none drugs: none - Constitutional Constitutional: Denies chills, Denies fever - EENT Eyes: denies blurred vision, denies pain Ears: deny: decreased hearing, tinnitus Ears, nose, mouth and throat: Denies headache, Denies sore throat - Cardiovascular Cardiovascular: Denies chest pain, Denies shortness of breath - Respiratory Respiratory: Denies cough - Gastrointestinal Comment: diverticular disease Gastrointestinal: Denies abdominal pain, Denies diarrhea, Denies nausea, Denies vomiting - Genitourinary (Female) Genitourinary: Denies dysuria, Denies hematuria - Menstruation Menstruation: Reports postmenopausal - Musculoskeletal Comment: arthritis Musculoskeletal: Reports myalgias - Integumentary Integumentary: Denies pruritus, Denies rash - Neurological Neurological: Denies numbness, Denies weakness - Psychiatric Psychiatric: Reports anxiety, Reports depression - Endocrine Endocrine: Denies fatigue, Denies weight change - Hematologic/Lymphatic Comment: none - Allergic/Immunologic Allergic/Immunologic: Reports seasonal allergies Past Medical History Past Medical History: Deep Vein Thrombosis (DVT), GERD/Reflux, Hyperlipidemia, Osteoarthritis (OA), Sleep Apnea/CPAP/BIPAP Additional Past Medical History / Comment(s): Diverticulitis. Hx DVT at age 6 after broken ankle. CPAP use. History of Any Multi-Drug Resistant Organisms: None Reported Past Surgical History: Breast Surgery, Cholecystectomy, Orthopedic Surgery Additional Past Surgical History / Comment(s): Bilateral foot surgery, left rotator cuff repair, cataract surgery with lens implants. Benign excisional biopsy left breast. Benign core biopsy right breast. Past Anesthesia/Blood Transfusion Reactions: Motion Sickness, Postoperative Nausea & Vomiting (PONV) Additional Past Anesthesia/Blood Transfusion Reaction / Comment(s): PONV - MOM. Minimal motion sickness. Past Psychological History: Anxiety Smoking Status: Never smoker Past Alcohol Use History: Rare Past Drug Use History: None Reported - Past Family History Father Family Medical History: Cancer Medications and Allergies Home Medications Medication Instructions Recorded Confirmed Type Cholecalciferol [Vitamin D3 (25 25 mcg PO DAILY 03/31/23 05/28/23 History Mcg = 1000 Iu)] Famotidine [Pepcid] 10 mg PO PC-SUPPER PRN 03/31/23 05/28/23 History Loratadine [Claritin] 10 mg PO DAILY PRN 03/31/23 05/28/23 History Rosuvastatin Calcium 10 mg PO DAILY 03/31/23 05/28/23 History Venlafaxine HCl ER [Effexor Xr] 37.5 mg PO QAM 03/31/23 05/28/23 History Dicyclomine [Bentyl] 10 mg PO QID PRN 05/07/23 05/28/23 History Allergies Allergy/AdvReac Type Severity Reaction Status Date / Time grass pollen Allergy Itchy eyes Verified 05/28/23 07:19 Sulfa (Sulfonamide Allergy Unknown Verified 05/28/23 07:19 Antibiotics) Childhood Objective - Vital Signs Vital signs: Vital Signs Temp 98 F 06/03/23 10:39 Pulse 97 06/03/23 10:39 Resp 17 06/03/23 10:39 BP 148/79 06/03/23 10:39 Pulse Ox 99 06/03/23 10:39 FiO2 Intake & Output 06/02/23 06/03/23 06/03/23 18:59 06:59 18:59 Weight 80.286 kg - Constitutional General appearance: Present: cooperative - EENT Eyes: Present: EOMI ENT: Present: hearing grossly normal - Neck Neck: Present: normal ROM - Respiratory Respiratory: bilateral: CTA - Cardiovascular Heart sounds: normal: S1, S2 - Gastrointestinal General gastrointestinal: Present: soft - Integumentary Integumentary: Present: normal turgor - Musculoskeletal Musculoskeletal: Present: gait normal - Psychiatric Psychiatric: Present: A&O x's 3, appropriate affect, intact judgment & insight - Additional findings Additional findings: Breast Exam: BRA: 40G Inspection: Bilateral grade 2/3 ptosis Patient: Right breast: Multi positional exam fibrocystic changes, no dominant masses or nodules of concern; post stero biopsy changes, post ultrasound biopsy changes Right axilla: No adenopathy of concern Left breast: Multi positional exam fibrocystic changes no dominant masses or nodules of concern Left axilla: No adenopathy of concern Assessment and Plan Assessment: Impression: two sites of cancer; 12 OClock stereo biopsy site with microinvasion/approximately 3 cm area involved 2:00 ultrasound biopsy site 1.4 cm invasive ductal carcinoma, stage Ia Questionable additional multifocal calcifications of concern in the right breast Patient would like to have bilateral mastectomy with reconstruction Plan: Genetic testing Appointment with plastic surgery Bilateral mastectomy with immediate implant reconstruction, right sentinel node biopsy possible right axillary node dissection Medical clearance Presentation of case at tumor board CC: Dr. Campos
== END ==
LOC: WWCWWP 10:26
PROVIDERS: ATTEND Surgery
DX: C50.211 Malignant neoplasm of upper-inner quadrant of right female breast (principal); C50.811 Malignant neoplasm of overlapping sites of right female breast; E78.00 Pure hypercholesterolemia, unspecified; F41.9 Anxiety disorder, unspecified; G47.30 Sleep apnea, unspecified; K21.9 Gastro-esophageal reflux disease without esophagitis; M19.90 Unspecified osteoarthritis, unspecified site; Z80.3 Family history of malignant neoplasm of breast; Z17.0 Estrogen receptor positive status [ER+]; Z86.718 Personal history of other venous thrombosis and embolism; Z88.2 Allergy status to sulfonamides; Z91.09 Other allergy status, other than to drugs and biological substances; Z91.048 Other nonmedicinal substance allergy status; Z90.13 Acquired absence of bilateral breasts and nipples

== ENCOUNTER → 2023-06-30 | Outpatient (CLI) | payer OTHER ==
--- NOTE | 2023-06-30 16:16 | US ---
EXAMINATION TYPE: US carotid duplex BILAT DATE OF EXAM: 06/30/2023 COMPARISON: 05/22/2021 CLINICAL INDICATION: Female, 63 years old with history of I65.23 OCCLUSION AND STENOSIS OF BI Z01.818 G47.33; Patient states arm numbness/pain. TECHNIQUE: Carotid duplex ultrasound examination. Indirect Doppler criteria was utilized. FINDINGS: EXAM MEASUREMENTS: RIGHT: Peak Systolic Velocity (PSV) cm/sec ----- Right CCA: 87.9 ----- Right ICA: 72.1 ----- Right ECA: 87.5 ICA/CCA ratio: 0.8 RIGHT: End Diastole cm/sec ----- Right CCA: 25.8 ----- Right ICA: 25.9 ----- Right ECA: 21.3 LEFT: Peak Systolic Velocity (PSV) cm/sec ----- Left CCA: 68.6 ----- Left ICA: 109.5 ----- Left ECA: 72.1 ICA/CCA ratio: 1.6 LEFT: End Diastole cm/sec ----- Left CCA: 15.4 ----- Left ICA: 35.7 ----- Left ECA: 35.7 VERTEBRALS (direction of flow): Right Vertebral: Antegrade Left Vertebral: Antegrade Rhythm: Normal SENIOR OPERATIONS ANALYST NOTES: Small amount of plaque bilateral bulbs. No significant velocity elevations seen to day. IMPRESSION: Small amount of plaque bilaterally with no significant hemodynamic stenosis by carotid Doppler ultras ound. Criteria for Assigning % of Stenosis / Diameter reduction (Estimation based on the indirect measurements of the internal carotid artery velocities (ICA PSV). 1. Normal (no stenosis)=ICA PSV < 125 cm/s: ratio < 2.0: ICA EDV<40 cm/s. 2. Less than 50% stenosis=ICA PSV < 125 cm/s: ratio < 2.0: ICA EDV<40 cm/s. 3. 50 to 69% stenosis=ICA PSV of 125 to 230 cm/s: ration 2.0 ? 4.0: ICA EDV 40-100 cm/s. 4. Greater than 70% stenosis to near occlusion= ICA PSV > 230 cm/s: ratio > 4.0: ICA EDV > 100 cm/s. 5. Near occlusion= ICA PSV velocities may be low or undetectable: variable ratio and ICA EDV. 6. Total occlusion=unable to detect flow.
--- NOTE | 2023-06-30 18:12 | CA ---
Transthoracic Echo Report Name: Yasmine Trejo Age: 63 Gender: F : 1960 Exam Date: 06/30/2023 14:56 Exam Location: [facility] Ht (in): 62 Wt (lb): 185 Ordering Physician: John Siddiqui MD Attending/Referring Phys: John Siddiqui MD Software Development Intern Marychuy Ayala RDCS Procedure CPT: Indications: I65.23 OCCLUSION AND STENOSIS OF BI Z01.818 G47.33 Cardiac Hx: Technical Quality: Good Contrast 1: Total Dose (mL): Contrast 2: Total Dose (mL): MEASUREMENTS (Male / Female) Normal Values 2D ECHO LV Diastolic Diameter PLAX 4.7 cm 4.2 - 5.9 / 3.9 - 5.3 cm LV Systolic Diameter PLAX 3.1 cm IVS Diastolic Thickness 0.8 cm 0.6 - 1.0 / 0.6 - 0.9 cm LVPW Diastolic Thickness 0.8 cm 0.6 - 1.0 / 0.6 - 0.9 cm LV Relative Wall Thickness 0.3 RV Internal Dim ED PLAX 3.1 cm LA Systolic Diameter LX 3.5 cm 3.0 - 4.0 / 2.7 - 3.8 cm LV Diastolic Volume MOD 4C 71.8 cm??? LV Systolic Volume MOD 4C 31.5 cm??? LV Ejection Fraction MOD 4C 56.0 % LV Cardiac Index MOD 4C 1442.1 cm???/min???m??? LV Diastolic Length 4C 6.7 cm LV Systolic Length 4C 5.5 cm LV Diastolic Volume MOD 2C 56.2 cm??? LV Systolic Volume MOD 2C 21.5 cm??? LV Ejection Fraction MOD 2C 61.6 % LV Cardiac Index MOD 2C 1241.5 cm???/min???m??? LV Diastolic Length 2C 7.2 cm LV Systolic Length 2C 5.5 cm LA Volume 48.1 cm??? 18 - 58 / 22 - 52 cm??? LA Volume Index 24.6 cm???/m??? 16 - 28 cm???/m??? M-MODE Aortic Root Diameter MM 2.6 cm DOPPLER AV Peak Velocity 139.5 cm/s AV Peak Gradient 7.8 mmHg MV Area PHT 4.1 cm??? Mitral E Point Velocity 85.3 cm/s Mitral A Point Velocity 87.4 cm/s Mitral E to A Ratio 1.0 MV Deceleration Time 183.6 ms LV E' Lateral Velocity 6.9 cm/s Mitral E to LV E' Lateral Ratio 12.3 LV E' Septal Velocity 4.5 cm/s Mitral E to LV E' Septal Ratio 18.8 TR Peak Velocity 223.2 cm/s TR Peak Gradient 19.9 mmHg Right Ventricular Systolic Press 24.6 mmHg FINDINGS Left Ventricle Left ventricular ejection fraction is estimated at 55-60 %. Left ventricular cavity size normal. Left ventricular wall thickness normal. Normal left ventricular wall motion. Right Ventricle Normal right ventricular size. Right ventricular systolic pressure within normal limits. Right Atrium Normal right atrial size. Left Atrium Normal left atrial size. Mitral Valve Structurally normal mitral valve. Mild mitral regurgitation.mitral annular calcification. Aortic Valve Trileaflet aortic valve. No aortic valve stenosis or regurgitation. Tricuspid Valve Structurally normal tricuspid valve. Mild tricuspid regurgitation. Pulmonic Valve Structurally normal pulmonic valve. Trace to mild pulmonic regurgitation. Pericardium No pericardial effusion. Aorta Normal size aortic root and proximal ascending aorta. CONCLUSIONS 1. Normal left ventricular size and systolic function 2. Mild mitral and tricuspid regurgitation with no evidence of pulmonary hypertension Previewed by: Dr. Kathleen Galicia MD (Electronically Signed) Final Date: 30 June 2023 18:11
== END | disposition home or self-care (01) ==
LOC: RADECHMAIN 14:30
PROVIDERS: ATTEND Internal Medicine
DX: Z01.818 Encounter for other preprocedural examination (principal); I65.23 Occlusion and stenosis of bilateral carotid arteries; I34.0 Nonrheumatic mitral (valve) insufficiency; I36.1 Nonrheumatic tricuspid (valve) insufficiency; G47.33 Obstructive sleep apnea (adult) (pediatric)
CPT/HCPCS: 93306; 93880

== ENCOUNTER → 2024-06-05 | Outpatient (CLI) | payer OTHER ==
--- NOTE | 2024-06-05 10:44 | XR ---
EXAMINATION TYPE: XR lumbar spine 2 or 3V DATE OF EXAM: 06/05/2024 10:38 AM COMPARISON: None. CLINICAL INDICATION: Female, 64 years old with history of M54.50 Lumbar back pain, TECHNIQUE: Frontal, lateral, and oblique images of the lumbar spine are obtained. FINDINGS: Curvature lumbar spine convex to the left. There are 5 lumbar type vertebral bodies identif ied. The lumbar spine shows satisfactory alignment without evidence of acute fracture or dislocation . Vertebral body heights are within normal limits. Moderate to severe multilevel degenerative disc sp edgar narrowing and spondylosis. Facet joint arthropathy. The overlying soft tissue appears unremarkabl e. IMPRESSION: No acute fracture or dislocation is seen in the lumbar spine.ICD 10 NO FRACTURE, INITIAL EVALUATION [facility], , 06/05/2024 10:41 AM
== END | disposition home or self-care (01) ==
LOC: RADXRMAIN 10:26
PROVIDERS: ATTEND Internal Medicine
DX: M51.360 Other intervertebral disc degeneration, lumbar region with discogenic back pain only (principal); M47.896 Other spondylosis, lumbar region
CPT/HCPCS: 72100

== ENCOUNTER → 2024-07-22 | Outpatient (CLI) | payer OTHER ==
[2024-07-22 12:49] LABS: Basophils # (A) 0.02 X 10*3/uL (0.00-0.10); Basophils % (A) 0.3 %; Eosinophils # (A) 0.05 X 10*3/uL (0.04-0.35); Eosinophils % (A) 0.8 %; HCT 47.1 % (37.2-46.3); HGB 15.1 g/dL (12.0-15.0); Lymphocytes # (A) 1.96 X 10*3/uL (0.90-5.00); Lymphocytes % (A) 31.2 %; MCH 28.2 pg (27.0-32.0); MCHC 32.1 g/dL (32.0-37.0); MCV 87.9 FL (80.0-97.0); Mean Platelet Volume 10.5 FL (9.5-12.2); Monocytes # (A) 0.69 X 10*3/uL (0.20-1.00); NRBC Per 100 WBC 0 X 10*3/uL (0.00-0.01); Neutrophils # (A) 3.53 X 10*3/uL (1.80-7.70); Neutrophils % (A) 56.2 %; Platelet Count 254 X 10*3/uL (140-440); RBC 5.36 X 10*6/uL (4.10-5.20); RDW 13.2 % (11.5-14.5); WBC 6.28 X 10*3/uL (4.50-10.00)
[2024-07-22 12:59] LABS: Erythrocyte Sedimentation Rate 10 mm/Hr (0-30)
[2024-07-22 13:19] LABS: ALT 40 U/L (8-44); AST 28 U/L (13-35); Albumin 4.2 g/dL (3.8-4.9); Albumin/Globulin Ratio 1.83 Ratio (1.60-3.17); Alkaline Phosphatase 113 U/L (41-126); BUN/Creat Ratio 18.33 Ratio (12.00-20.00); Calcium 9.2 mg/dL (8.7-10.3); Carbon Dioxide 23.8 mmol/L (21.6-31.8); Chloride 103 mmol/L (96-109); Chol/HDL Ratio 2.06 Ratio; Creatine Kinase 50 U/L (26-186); Globulin 2.3 g/dL (1.6-3.3); Glucose 120 mg/dL (70-110); LDL Cholesterol,Calculated 40.1 mg/dL (0.0-131.0); Potassium 4.3 mmol/L (3.5-5.5); Rheumatoid Factor, Qnt <15 IU/mL (0-15); Sodium 142 mmol/L (135-145); Total Bilirubin 0.4 mg/dL (0.3-1.2); Total Protein 6.5 g/dL (6.2-8.2); Uric Acid 4.9 mg/dL (2.9-7.7); VLDL Calculation 19.14 mg/dL (5.00-40.00)
[2024-07-24 14:39] LABS: Cyclic Citrull Pep IgG Unit <1.5 U/mL (<=3.9); Cyclic Citrullinated Pep IgG Negative
== END | disposition home or self-care (01) ==
LOC: LABWHC1 07:54
PROVIDERS: ATTEND Internal Medicine
DX: E78.2 Mixed hyperlipidemia (principal); G47.33 Obstructive sleep apnea (adult) (pediatric); M19.90 Unspecified osteoarthritis, unspecified site; R73.03 Prediabetes
CPT/HCPCS: 36415; 80053; 80061; 82306; 82550; 83036; 84443; 84550; 85025; 85652; 86038; 86140; 86200; 86431; 86618

== ENCOUNTER → 2024-08-11 | Outpatient (CLI) | payer OTHER ==
[~2024-08-11] MED LIST changes: -LACTATED RINGERS 1,000 ML IV ONE; -LACTATED RINGERS 1,000 ML IV SCH; -PROPOFOL 10 MG/ML 20 ML VIAL IV ONE; +SODIUM CHLORIDE 0.9% 250 ML in EMPTY BAG 1 BAG IV PRN
[2024-08-11 10:30] VITALS: BP 120/77; PULSE 83; RESP 16; TEMP 98
[2024-08-11] MEDS: SODIUM CHLORIDE 0.9% 500 ML 500 ML in EMPTY BAG 1 BAG IV PRN (10:39)
[2024-08-11] MEDS: ZOLEDRONIC ACID 5 MG in SODIUM CHLORIDE 0.9% 100 ML IV NR (10:48)
== END ==
LOC: PROCWHC3 10:07
PROVIDERS: ATTEND Internal Medicine
DX: M81.0 Age-related osteoporosis without current pathological fracture (principal)
CPT/HCPCS: 96365; J3489